=== PATIENT | female | born 1980 | race Caucasian/White ===

== ENCOUNTER 2019-08-04 08:52 | Emergency (ER) | payer OTHER, SELFPAY ==
--- NOTE | ~2019-08-04 | XR_ITS ---
EXAMINATION: XR ankle LT min 3V DATE: 08/04/2019 09:26 INDICATION: Lateral left ankle pain post fall one day prior TECHNIQUE: Anteroposterior, oblique, mortise, and lateral views of the left ankle were obtained. COMPARISON: None. FINDINGS: There is nondisplaced transverse fracture through the distal fibula with a fracture plane exiting med ially below the level of the tibiotalar joint. No other fracture identified. Specifically the medial and posterior malleoli as well as the talar dome are intact. Ankle mortise remains congruent.Small plantar calcaneal spur. Tiny enthesopathic ossicle at the distal Achilles tendon. Soft tissue swellin g overlying the lateral malleolus. Prominent ankle joint effusion. IMPRESSION: 1. Nondisplaced transverse fracture of the distal left fibula consistent with a Ott type A injury p attern with associated left ankle joint effusion. Reviewed, dictated and finalized at location A. IMPRESSION: 1. Nondisplaced transverse fracture of the distal left fibula consistent with a Ott type A injury pattern with associated left ankle joint effusion.
--- NOTE | 2019-08-04 09:31 | ED.LOWEXIN ---
HPI - Extremity Injury (Lower) General Chief Complaint: Extremity Injury, Lower Stated Complaint: fell left ankle pain Time Seen by Provider: 08/04/19 09:31 Source: patient and RN notes reviewed History of Present Illness HPI Narrative: Patient is a 39-year-old female who presents the urgent care with complaints of a left ankle injury. Patient states that she has had increased pain and swelling and is unable to bear weight on the left foot. Patient states that she stepped off a curb and rolled her ankle last night in the rain. Patient has elevated and use ice. Denies of any other acute complaints. No other acute injuries due to the fall. Patient aware of the plan of care. Related Data Home Medications Medication Instructions Recorded Confirmed alprazolam 1 mg PO DAILY 08/04/19 08/04/19 levothyroxine 25 mcg PO DAILY 08/04/19 08/04/19 sertraline 50 mg PO DAILY 08/04/19 08/04/19 Allergies Allergy/AdvReac Type Severity Reaction Status Date / Time Penicillins Allergy Unknown Verified 08/04/19 09:50 Sulfa (Sulfonamide Allergy Unknown Verified 08/04/19 09:50 Antibiotics) Review of Systems Review of Systems: Narrative: CONSTITUTIONAL: Denies fever, chills, or sweats. EYES: Denies visual changes, redness, or discharge. ENT: Denies rhinorrhea, congestion, sore throat, or otalgia. CARDIOVASCULAR: Denies chest pain, palpitations, or edema. RESPIRATORY: Denies cough or dyspnea. GASTROINTESTINAL: Denies abdominal pain, nausea, vomiting, or diarrhea. GENITOURINARY: Denies dysuria or hematuria. SKIN: Denies rash or itching. MUSCULOSKELETAL: Reports of left ankle pain and swelling NEUROLOGIC: Denies headache, numbness, or weakness. All other systems reviewed are negative, except as documented in HPI. [facility]LY [facility], [facility] Family History Family History (Updated 05/26/14 @ 12:34 by DOCTOR UNKNOWN) Other Diabetes mellitus Family history of malignant neoplasm Social History Social History Smoking status: Never smoker Alcohol intake: current Comments At the time of my signature, I reviewed and agree with the nursing past medical, surgical, social, and family history. There is no relevant family history pertinent to the patient complaint. Exam Narrative: Exam Narrative: GENERAL: This is a well-nourished, well-developed patient, in no apparent distress. HEAD: normocephalic, atraumatic. EYES: PERRL. Sclera clear/white. Vision is grossly intact. EARS: External ears normal NOSE: External nose normal with no obvious nasal discharge THROAT: Mucous membranes moist NECK: Neck supple SKIN: warm, intact with no suspicious lesions or rash, good texture and turgor. NEURO: awake, alert, and oriented to person, place and time. There were no obvious focal neurologic abnormalities. EXTREMITIES: Moderate edema and mild ecchymosis noted to the lateral malleolus and distal left fibular region with moderate tenderness. Range of motion not tested due to pain. Unable to bear weight without extreme pain. Positive strong left pedal pulse with capillary refill less than 2 seconds. Course Vital Signs Vital signs: Vital Signs Temperature 97.3 F L 08/04/19 09:43 Pulse Rate 105 H 08/04/19 09:43 Respiratory Rate 18 08/04/19 09:43 Blood Pressure 134/92 H 08/04/19 09:43 Pulse Oximetry 98 08/04/19 09:43 Temperature 97.3 F L 08/04/19 09:43 Pulse Rate 105 H 08/04/19 09:43 Respiratory Rate 18 08/04/19 09:43 Blood Pressure 134/92 H 08/04/19 09:43 Pulse Oximetry 98 08/04/19 09:43 Reviewed?patient is informed that they may have pre-hypertension or hypertension based on a blood pressure reading in the department. I recommend the patient call the primary care provider listed on their discharge instructions or a physician of their choice this week to arrange follow-up for further evaluation of possible pre-hypertension or hypertension. Procedures Orthopedic Splinting/Casting Injury #1: Side: left Lower Extremit
[2019-08-04 09:43] VITALS: BP 134/92; PULSE 105; RESP 18; TEMP 36.3; O2SAT 98
== END 2019-08-04 10:20 | disposition home or self-care (01) ==
PROVIDERS: Emergency Provider Nurse Practitioner Family; PCP Family Medicine
DX: S82.832A Other fracture of upper and lower end of left fibula, initial encounter for closed fracture (principal)
CPT/HCPCS: 29515; 73610; 99214; G0463

== ENCOUNTER 2019-10-03 14:38 | Outpatient (CLI) | payer OTHER, SELFPAY ==
[2019-10-03 16:22] LABS: Free T4 Free Thyroxine 0.95 ng/mL (0.78-2.19); Vitamin D 25 Hydroxy 18.6 ng/mL
== END 2019-10-03 14:39 | disposition home or self-care (01) ==
PROVIDERS: PCP Family Medicine; Visit Provider Nurse Practitioner Family
DX: E03.9 Hypothyroidism, unspecified (principal); R53.83 Other fatigue
CPT/HCPCS: 36415; 82306; 82607; 84439; 84443

== ENCOUNTER 2020-09-04 09:14 | Outpatient (CLI) | payer OTHER, SELFPAY ==
[2020-09-04 09:37] LABS: Alanine Aminotransferase 55 U/L (4-35); Albumin Level 4.5 g/dL (3.5-5.1); Alkaline Phosphatase 89 U/L (38-126); Anion Gap 11 mmol/L (8-16); Aspartate Amino Transferase 46 U/L (14-36); Bilirubin,Total 0.2 mg/dL (0.2-1.3); Blood Urea Nitrogen 9 mg/dL (7-17); Calcium 9.4 mg/dL (8.4-10.2); Carbon Dioxide 24 mmol/L (22-30); Chloride 107 mmol/L (98-107); Cholesterol 233 mg/dL (0-200); Estimated Glomerular Filt Rate > 60; Glucose 91 mg/dL (65-105); HDL Direct 57 mg/dL; Sodium 142 mmol/L (137-145); Triglycerides 145 mg/dL (<150)
[2020-09-04 09:49] LABS: LDL Cholesterol Direct 116 mg/dL
== END 2020-09-04 09:15 | disposition home or self-care (01) ==
PROVIDERS: PCP Family Medicine; Visit Provider Nurse Practitioner Family
DX: R74.8 Abnormal levels of other serum enzymes (principal); E03.9 Hypothyroidism, unspecified; R63.5 Abnormal weight gain
CPT/HCPCS: 36415; 80053; 80061; 84436; 84443

== ENCOUNTER 2020-10-10 09:34 | Emergency (ER) | payer OTHER, SELFPAY ==
[2020-10-10 09:44] VITALS: BP 127/80; PULSE 107; RESP 16; TEMP 36.7; O2SAT 100
--- NOTE | 2020-10-10 10:05 | ED.GENADULT ---
HPI - General Adult General Chief complaint: Upper Respiratory Infection Stated complaint: Sinus Pressure Source: patient Mode of arrival: ambulatory Limitations: no limitations History of Present Illness HPI narrative: Patient presents for evaluation of sinus problems. She reports frontal and maxillary sinus congestion and pain for the last week. She further endorses mucopurulent drainage from both nares. No fever, chills, nausea, vomiting, sore throat, otalgia, respiratory symptoms. She has a history of recurrent sinus infections. She had nasoplasty in the past. She has been using Flonase with some limited improvement in her symptoms thereafter. Related Data Home Medications Medication Instructions Recorded Confirmed phentermine 37.5 mg capsule 37.5 mg PO DAILY 08/26/20 10/10/20 Allergies Allergy/AdvReac Type Severity Reaction Status Date / Time Penicillins Allergy Unknown Unknown Verified 10/10/20 09:48 Sulfa (Sulfonamide Allergy Unknown Unknown Verified 10/10/20 09:48 Antibiotics) Review of Systems Review of Systems: Narrative: CONSTITUTIONAL: Denies fever, chills, or sweats. EYES: Denies visual changes, redness, or discharge. ENT: Reports sinus congestion with mucopurulent drainage from both nares. Denies congestion, sore throat, or otalgia. CARDIOVASCULAR: Denies chest pain, palpitations, or edema. RESPIRATORY: Denies cough or dyspnea. GASTROINTESTINAL: Denies abdominal pain, nausea, vomiting, or diarrhea. GENITOURINARY: Denies dysuria or hematuria. SKIN: Denies rash or itching. MUSCULOSKELETAL: Denies back pain, joint pain, or myalgia. NEUROLOGIC: Denies headache, numbness, dizziness, or weakness. PSYCHIATRIC: Denies anxiety or depression. [facility] Past Medical History Medical History Body mass index (BMI) of 40.1 to 44.9 in adult delivery delivered Fracture of lateral malleolus of left ankle History of LEEP (loop electrosurgical excision procedure) of cervix complicating (~05/2010) Morbid (severe) obesity due to excess calories Surgical History Surgical History History of (~07/2004) History of nasal surgery (~03/2009) Family History Family History Grandparent Breast cancer Grandparent Diabetes mellitus Father No problems noted. Mother No problems noted. Sibling No problems noted. 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 HEAD: Normocephalic, atraumatic. EYES: PERRLA and EOMI. ENT: Tenderness over bilateral frontal and maxillary sinuses. Nares clear, no rhinorrhea or epistaxis. Mucous membranes moist. Oropharynx without tonsillar hypertrophy exudate or other lesions. Bilateral TMs pearly fernandez nonbulging NECK: Supple. No adenopathy or masses. No carotid bruits or JVD CHEST: Clear to auscultation. No respiratory distress. No wheezes rales or rhonchi HEART: Regular rate and rhythm. No murmur heard. Normal peripheral pulses. ABDOMEN: Soft, nontender, nondistended, normal active bowel sounds. EXTREMITIES: Normal range of motion. No edema. SKIN: Warm, dry, no rash. NEURO: No focal deficits. Alert and oriented x3. PSYCH: Normal mood and affect. Course Course Emergency Course: This is a 40-year-old female who presents with sinu
== END 2020-10-10 10:18 | disposition home or self-care (01) ==
PROVIDERS: Emergency Provider Nurse Practitioner; PCP Family Medicine
DX: J00 Acute nasopharyngitis [common cold] (principal); J01.90 Acute sinusitis, unspecified; Z87.891 Personal history of nicotine dependence; E66.01 Morbid (severe) obesity due to excess calories; Z68.39 Body mass index [BMI] 39.0-39.9, adult
CPT/HCPCS: 99213; G0463

== ENCOUNTER 2021-05-11 08:43 | Outpatient (CLI) | payer OTHER, SELFPAY ==
--- NOTE | ~2021-05-11 | XR_ITS ---
XR knee RT 3V 05/11/2021 09:00 Indication: Right knee pain Procedure: 3 views right knee Comparison: No prior studies for comparison. Findings: No fracture, subluxation or dislocation. No significant joint effusion. No foreign bodies. There is anatomic alignment. Impression: 1: No significant bone or joint abnormality. Reviewed, dictated and finalized at location B. GING CUT OFF SAW OPERATOR Impression: 1: No significant bone or joint abnormality.
--- NOTE | ~2021-05-11 | XR_ITS ---
XR knee LT 3V 05/11/2021 08:59 INDICATION: Left knee pain PROCEDURE: 3 views left knee COMPARISON: No prior studies FINDINGS: Fracture, dislocation or subluxation is not identified. No significant joint effusion. The soft tissues appear within normal limits. No foreign bodies are identified. IMPRESSION: 1: NO ACUTE BONE OR JOINT ABNORMALITY IDENTIFIED. Reviewed, dictated and finalized at location B. TELECOM TECHNICIAN
== END 2021-05-11 08:44 | disposition home or self-care (01) ==
LOC: ANHIMG 08:45
PROVIDERS: PCP Family Medicine; Visit Provider Nurse Practitioner Family
DX: M25.561 Pain in right knee (principal); M25.562 Pain in left knee
CPT/HCPCS: 73562

== ENCOUNTER 2021-10-29 11:56 | Outpatient (CLI) | payer OTHER, SELFPAY ==
[2021-10-29 12:10] LABS: Hematocrit 43.7 % (37.0-47.0); Hemoglobin 13.8 g/dL (12.0-15.0); Mean Corpuscular HGB Conc 31.6 g/dl (32-36); Mean Corpuscular Hemoglobin 30.9 pg (26-34); Mean Corpuscular Volume 97.8 fl (80-100); Mean Platelet Volume 9.7 fl (7.4-10.4); Platelet Count Result 333 k/mm3 (150-375); Red Blood Count 4.47 M/mm3 (4.2-5.4); Red Cell Distribution Width 12.7 % (11.5-14.5); White Blood Count 5.2 K/mm3 (4.5-10.0)
[2021-10-29 12:21] LABS: Alanine Aminotransferase 44 U/L (6-35); Albumin Level 4.9 g/dL (3.5-5.1); Alkaline Phosphatase 91 U/L (38-126); Anion Gap 8 mmol/L (8-16); Aspartate Amino Transferase 37 U/L (14-36); Bilirubin,Total 0.5 mg/dL (0.2-1.3); Blood Urea Nitrogen 13 mg/dL (7-17); Calcium 9.3 mg/dL (8.4-10.2); Carbon Dioxide 28 mmol/L (22-30); Chloride 103 mmol/L (98-107); Cholesterol 274 mg/dL (0-200); Estimated Glomerular Filt Rate > 60; Glucose 100 mg/dL (65-110); HDL Direct 75 mg/dL; Potassium 4.1 mmol/L (3.4-5.0); Sodium 139 mmol/L (137-145); Triglycerides 129 mg/dL (<150)
[2021-10-29 12:32] LABS: LDL Cholesterol Direct 157 mg/dL
[2021-10-29 12:51] LABS: Free T4 Free Thyroxine 1.01 ng/mL (0.78-2.19)
== END 2021-10-29 11:57 | disposition home or self-care (01) ==
PROVIDERS: PCP Family Medicine; Visit Provider Nurse Practitioner Family
DX: F41.9 Anxiety disorder, unspecified (principal); Z13.220 Encounter for screening for lipoid disorders; R79.89 Other specified abnormal findings of blood chemistry; E07.9 Disorder of thyroid, unspecified; E03.9 Hypothyroidism, unspecified
CPT/HCPCS: 36415; 80053; 80061; 84439; 84443; 85027

== ENCOUNTER 2021-11-24 06:10 | Emergency (ER) | payer OTHER, SELFPAY ==
--- NOTE | ~2021-11-24 | CT_ITS ---
EXAMINATION: CT abdomen pelvis w con DATE: 11/24/2021 07:51 INDICATION: Right upper quadrant abdominal pain. TECHNIQUE: Computed tomography (CT) of the abdomen and pelvis was performed with 100 mL Omnipaque 350 intravenous contrast. Automated exposure control and iterative reconstruction technique were employe d. The dose-length product was 1410.89 mGy-cm. COMPARISON: None. FINDINGS: The visualized portions of the lung bases are clear without pneumonia or pleural effusion. The heart size is normal. No pericardial effusion. The liver, gallbladder, spleen, pancreas, adrenal glands, and right kidney are normal. There is a 3 mm cyst in left kidney. There is an intrauterine de vice in expected position. There are no dilated loops of bowel. The appendix is normal. There is an u mbilical hernia containing fat. There are no pathologically enlarged lymph nodes. There is physiologi c fluid in the pelvis. There is mild thoracic spondylosis. IMPRESSION: 1. Umbilical hernia containing fat. Reviewed, dictated and finalized at location A.
[2021-11-24 06:11] VITALS: BP 123/86; PULSE 113; RESP 20; TEMP 36.6; O2SAT 98
--- NOTE | 2021-11-24 06:35 | ED.ABDPAIN ---
HPI - Abdominal Pain General Chief Complaint: Back Pain/Injury <Devonte Ortiz MD - Last Filed: 11/24/21 06:40> Stated Complaint: Back Pain Radiating through Chest <Devonte Ortiz MD - Last Filed: 11/24/21 06:40> Time Seen by Provider: 11/24/21 06:21 <Devonte Ortiz MD - Last Filed: 11/24/21 06:40> History of Present Illness HPI narrative: This is a 41-year-old female past medical history of hypertension, who presents to the emergency department complaining of 2 out of 10 right flank pain for the past day. She says yesterday, she noted mild flank tenderness, described as dull, that persisted and eventually began radiating to the front of her abdomen as well as towards the right neck. She knows of no aggravating or alleviating factors. She denies associated nausea, vomiting, pain with urination or increased frequency of urinationor diarrhea. <Devonte Ortiz MD - Last Filed: 11/24/21 06:40> Related Data Home Medications: Home Medications Medication Instructions Recorded Confirmed levonorgestrel 20 mcg/24 hours (7 1 device intrauterine ONCE 11/01/21 11/01/21 yrs) 52 mg intrauterine device (Mirena) <Devonte Ortiz MD - Last Filed: 11/24/21 06:40> Allergies/Adverse Reactions: Allergies Allergy/AdvReac Type Severity Reaction Status Date / Time Penicillins Allergy Unknown Unknown Verified 11/24/21 06:17 Sulfa (Sulfonamide Allergy Unknown Unknown Verified 11/24/21 06:17 Antibiotics) <Devonte Ortiz MD - Last Filed: 11/24/21 06:40> Review of Systems Review of Systems: CONSTITUTIONAL: Denies fever, chills, or sweats. EYES: Denies visual changes, redness, or discharge. ENT: Denies rhinorrhea, congestion, sore throat, or otalgia. CARDIOVASCULAR: Denies chest pain, palpitations, or edema. RESPIRATORY: Denies cough or dyspnea. GASTROINTESTINAL: Right flank pain and abdominal pain denies nausea, vomiting, or diarrhea. GENITOURINARY: Denies dysuria or hematuria. SKIN: Denies rash or itching. MUSCULOSKELETAL: Denies back pain, joint pain, or myalgia. NEUROLOGIC: Denies headache, numbness, dizziness, or weakness. PSYCHIATRIC: Denies anxiety or depression. <Devonte Ortiz MD - Last Filed: 11/24/21 06:40> [facility] Past Medical History Medical History: Medical History BMI 37.0-37.9, adult Body mass index (BMI) of 40.1 to 44.9 in adult delivery delivered Fracture of lateral malleolus of left ankle History of LEEP (loop electrosurgical excision procedure) of cervix complicating (~05/2010) Morbid (severe) obesity due to excess calories <Devonte Ortiz MD - Last Filed: 11/24/21 06:40> Surgical History Surgical History: Surgical History History of (~07/2004) History of nasal surgery (~03/2009) <Devonte Ortiz MD - Last Filed: 11/24/21 06:40> Family History Family History: Family History Grandparent Breast cancer Grandparent Diabetes mellitus Father No problems noted. Mother Thyroid activity decreased Sibling No problems noted. 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
[2021-11-24] MEDS: SODIUM CHLORIDE 0.9% IV 1,000 ML 999 ML IV CONT (06:52)
[2021-11-24 06:54] LABS: Basophils Percent Auto 0.4 % (0.2-1.2); Eosinophils Absolute Auto 0.2 K/mm3 (0-0.3); Eosinophils Percent Auto 2.2 % (0-4.4); Hematocrit 42.5 % (37.0-47.0); Hemoglobin 13.8 g/dL (12.0-15.0); Immature Granulocyte Absolute 0.04 K/mm3 (0.00-0.031); Immature Granulocyte Percent A 0.4 % (0-0.5); Lymphocytes Absolute Auto 1.88 K/mm3 (0.9-3.2); Lymphocytes Percent Auto 16.9 % (18.3-44.2); Mean Corpuscular HGB Conc 32.5 g/dl (32-36); Mean Corpuscular Hemoglobin 31.5 pg (26-34); Monocytes Absolute Auto 0.9 K/mm3 (0.1-0.6); Monocytes Percent Auto 8.3 % (2.6-8.5); Neutrophils Percent Auto 71.8 % (45.5-73.1); Platelet Count Result 302 k/mm3 (150-375); Red Blood Count 4.38 M/mm3 (4.2-5.4); Red Cell Distribution Width 13.2 % (11.5-14.5); White Blood Count 11.1 K/mm3 (4.5-10.0)
[2021-11-24 07:04] LABS: Alanine Aminotransferase 32 U/L (6-35); Albumin Level 4.6 g/dL (3.5-5.1); Alkaline Phosphatase 89 U/L (38-126); Anion Gap 13 mmol/L (8-16); Aspartate Amino Transferase 32 U/L (14-36); Bilirubin,Total 0.5 mg/dL (0.2-1.3); Blood Urea Nitrogen 21 mg/dL (7-17); Calcium 8.6 mg/dL (8.4-10.2); Carbon Dioxide 24 mmol/L (22-30); Chloride 101 mmol/L (98-107); Estimated CRCL calculation 159 ml/min; Estimated Glomerular Filt Rate > 60; Glucose 91 mg/dL (65-110); Lipase 54 U/L (23-300); Potassium 4.4 mmol/L (3.4-5.0); Sodium 138 mmol/L (137-145)
--- NOTE | 2021-11-24 07:18 | PC.NURSE ---
Transferred care to JONATHAN Serra
--- NOTE | 2021-11-24 07:26 | ECG_ITS ---
Measurements Intervals [place] Rate: 95 P: 43 CO: 162 QRS: -8 QRSD: 93 T: 6 QT: 355 QTc: 448 Interpretive Statements SINUS RHYTHM NORMAL ECG NO PREVIOUS ECG AVAILABLE FOR COMPARISON Electronically Signed On 11-24-2021 7:56:20 CDT by Aguilar Walton D.O.
[2021-11-24 07:31] VITALS: BP 132/112; PULSE 98; RESP 16; O2SAT 100
[2021-11-24 07:38] LABS: Appearance Urine Clear (Clear); Bilirubin Urine Negative (Negative); Blood Urine Trace-lysed (Negative); Color Urine Yellow (Yellow); Glucose Urine UA Negative (Negative); Ketones Urine Trace mg/dL (Negative); Leukocyte Esterase Ur Negative LEU/UL (Negative); Nitrate Urine Negative (Negative); Protein Urine Negative (Negative); Urobilinogen Urine 0.2 mg/dL (<2.0); pH Urine 5.5 (5.0-9.0)
[2021-11-24 07:41] LABS: Pregnancy On Board Control Positive; Urine Pregnancy Test Negative
--- NOTE | 2021-11-24 07:45 | PC.NURSE ---
Pt to CT scan at this time.
[2021-11-24 07:57] LABS: Add Urine Microscopic? YES; RBC Urine 0-2 /hpf (0-2); Squamous Epithelial Cell Urine Many /hpf (Few); WBC Urine 0-3 /hpf
[2021-11-24 08:20] LABS: Troponin I < 0.012 ng/mL (0.000-0.034)
[2021-11-24 08:23] VITALS: PULSE 107; RESP 17; O2SAT 98
[2021-11-24] MEDS: LORazepam INJ (*CRX) 2 MG/ML VIAL 1 MG IV PUSH (08:23)
[2021-11-24 09:04] VITALS: PULSE 107; RESP 20; O2SAT 97
[2021-11-24 10:25] LABS: Troponin I < 0.012 ng/mL (0.000-0.034)
[2021-11-24 10:26] VITALS: BP 118/81; PULSE 104; RESP 17; O2SAT 98
[2021-11-24 11:38] VITALS: BP 132/89; PULSE 101; RESP 17; O2SAT 99
[2021-11-24 12:04] LABS: D Dimer 0.33 ug/mL (<0.48)
[2021-11-24] MEDS: KETOROLAC 15 MG/ML VIAL (*BKC) IV PUSH (12:16)
== END 2021-11-24 12:23 | disposition home or self-care (01) ==
PROVIDERS: Emergency Medicine; Emergency Provider Preventive Medicine Aerospace Medicine; PCP Family Medicine
DX: R07.89 Other chest pain (principal); E66.01 Morbid (severe) obesity due to excess calories; Z68.37 Body mass index [BMI] 37.0-37.9, adult; Z87.891 Personal history of nicotine dependence; I10 Essential (primary) hypertension; K42.9 Umbilical hernia without obstruction or gangrene
CPT/HCPCS: 36415; 74177; 80053; 81001; 81025; 83690; 84484; 85025; 85380; 93005; 96361; 96374; 96375; 99284; J1885; J2060; J7030; Q9967

== ENCOUNTER 2022-05-30 09:41 | Outpatient (CLI) | payer OTHER, SELFPAY ==
--- NOTE | ~2022-05-30 | MM_ITS ---
EXAMINATION: MM screening jasmyne BI w caio HISTORY: Screening mammogram TECHNIQUE: Craniocaudal and mediolateral oblique 3-D tomosynthesis images were obtained and synthetic 2-D images were generated. CAD analysis was submitted and interpreted. COMPARISON: No prior mammogram is available for comparison at this institution. BREAST PARENCHYMAL COMPOSITION: There are scattered areas of fibroglandular density. FINDINGS: There is no evidence of suspicious mass, calcification, or architectural distortion to sugg est malignancy in either breast. IMPRESSION: 1. No mammographic evidence of malignancy. 2. Recommend routine screening mammography in one year. BI-RADS Category 1: Negative Reviewed, dictated and finalized at location A.
== END 2022-05-30 09:42 | disposition home or self-care (01) ==
LOC: ANHIMG 09:45
PROVIDERS: PCP Family Medicine; Visit Provider Nurse Practitioner Family
DX: Z12.31 Encounter for screening mammogram for malignant neoplasm of breast (principal)
CPT/HCPCS: 77063; 77067

== ENCOUNTER 2022-08-29 11:08 | Outpatient (CLI) | payer OTHER, SELFPAY ==
--- NOTE | ~2022-08-29 | CT_ITS ---
EXAMINATION: CT sinus wo con DATE: 08/29/2022 11:39 INDICATION: Chronic sinusitis. TECHNIQUE: Computed tomography (CT) of the paranasal sinuses was performed without intravenous contra st. The dose-length product was 317.41 mGy-cm. Automated exposure control and iterative reconstructio n technique were employed. COMPARISON: CT dated 12/17/2014 FINDINGS: There is mucosal thickening of the maxillary sinuses. Rightward nasal septal deviation. Lef t-sided ana bullosa. Ostiomeatal units are patent. No air-fluid levels or mucoperiosteal reaction. Minimal mucosal thickening of the ethmoid and sphenoid sinuses. Mastoids are pneumatized. IMPRESSION: 1. Mild sinusitis, primarily involving the maxillary sinuses. Reviewed, dictated and finalized at location []
== END 2022-08-29 11:09 | disposition home or self-care (01) ==
PROVIDERS: PCP Family Medicine; Visit Provider Otolaryngology
DX: J32.9 Chronic sinusitis, unspecified (principal); J34.2 Deviated nasal septum; J34.3 Hypertrophy of nasal turbinates; R09.82 Postnasal drip; R44.8 Other symptoms and signs involving general sensations and perceptions; R51.9 Headache, unspecified
CPT/HCPCS: 70486

== ENCOUNTER 2022-10-07 00:10 | Day surgery (SDC) | payer OTHER, SELFPAY ==
[2022-09-28 14:31] VITALS: BMI 37.5
--- NOTE | 2022-09-28 14:37 | PC.NURSE ---
Report to the Outpatient Waiting Room, entrance under the green pavilion located off [facility], at time 0730 on date 10/07/22. Planned Procedure Time: 0930. Time changes happen often and if your time is changed the preop area will call you the afternoon before. - You and your visitor will be asked to self-screen and do not enter if you have any COVID symptoms. - A mask is optional within the hospital at this time. Patients may have clear liquids (water, carbonated beverages, clear teas, apple juice) until 3 hours prior to surgery with a maximum of 20 ounces. - No food from midnight until time of surgery Take the following medications with a SIP of water the morning of surgery: INHALER/XANAX IF NEEDED, DULOXETINE, LEVOTHYROXINE DO NOT STOP ANY OF YOUR OTHER PRESCRIPTION MEDICATIONS PRIOR TO SURGERY ?EXCEPT THE FOLLOWING Medications to discontinue per physician: VITAMINS/SUPPLEMENTS Date to take last dose: 10/03/22 Please no make-up, nail australian, hairspray, perfume, deodorant, or body powder the day of surgery. No jewelry (including any body piercings) or valuables the day of surgery, leave them at home. Please take a shower or bath the night before, or the morning of, surgery with an antibacterial soap. Wear comfortable, loose fitting clothing. - Jewelry must be removed prior to entering the operating room. Rings and piercings that are not removed may be cut off. - The hospital will not accept responsibility for valuables. - Please leave all valuables, including medications, at home the day of surgery. If you are going home after surgery, a licensed armored car guard and driver must drive you home. - NO public transportation without another adult if you receive anesthesia. - We recommend that an adult stay with you for 24 hours following discharge. - We also recommend that you do not drive, make important decision, drink alcoholic beverages, or take any drugs that were not prescribed by your health care provider for at least 24 hours after your discharge time. Follow any additional instructions given to you from your surgeon. If you or anyone in your household have experienced Covid symptoms in the past week, please notify your surgeon or the nurse liaison at the phone number below for possible testing. Telephone instructions given to PT - GERMAN RANDHAWA and asked if any additional questions and then verbalized understanding. Patient advised to call surgeon office or pre surgery nurse liaison [phone] if any additional questions.
--- NOTE | 2022-10-06 17:21 | PM.IMHP ---
H&P: HPI History of Present Illness Date/Time: 10/06/22 17:21 Chief Complaint: chronic sinusitis left ana bullosa septal deviation turbinate hypertrophy nasal obstruction nasal congestion Narrative: planned procedure Review of Systems Review of Systems: All systems reviewed & are unremarkable except as noted in HPI and below PMFSH Past Medical History Medical History BMI 37.0-37.9, adult BMI 38.0-38.9,adult Body mass index (BMI) of 40.1 to 44.9 in adult delivery delivered Fracture of lateral malleolus of left ankle History of LEEP (loop electrosurgical excision procedure) of cervix complicating (~05/2010) Morbid (severe) obesity due to excess calories Surgical History Surgical History History of (~07/2004) History of nasal surgery (~03/2009) Family History Family History Grandparent Breast cancer Grandparent Diabetes mellitus Father No problems noted. Mother Thyroid activity decreased Sibling No problems noted. Other Family history of malignant neoplasm Social History Social History Years smoked: 5 Smoking status: Former smoker Tobacco type: cigarettes Second hand tobacco smoke exposure: Yes Smoking end date: 03/20/04 Alcohol intake: current Alcohol use details: VODKA: 5-10 DRINKS, 5 NIGHTS/WEEK Substance use: never Substance use type: does not use Lack of Transportation: No Lack of Food: Never True Current Housing: I Have Housing Concerned About Future Housing: No Difficulty Paying Gas/Electric Bills: No Difficulty Paying for Meds: No Currently Unemployed: No Education: Trade/Vocational Certificate Difficulty w/ Childcare or Family Care: No Living arrangements: with family Occupation/Education: occupation 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7 grams levothyroxine 25 mcg tablet 25 mcg PO DAILY #90 tabs 07/13/22 09/28/22 Rx duloxetine 20 mg capsule,delayed 20 mg PO BID #60 caps 08/30/22 09/28/22 Rx release milk thistle 500 mg capsule 500 mg PO DAILY 09/28/22 09/28/22 History alprazolam 1 mg tablet 1 mg PO DAILY PRN anxiety #10 tabs 10/04/22 Rx Allergies Allergy/AdvReac Type Severity Reaction Status Date / Time Penicillins Allergy Unknown Unknown Verified 09/28/22 14:28 Sulfa (Sulfonamide Allergy Unknown Unknown Verified 09/28/22 14:28 Antibiotics) Exam Narrative: ana bullosa septal deviation turbinate hypertrophy chronic appearing sinuses Assessment and Plan Assessment and plan (1) Chronic sinusitis: Code(s): J32.9 - Chronic sinusitis, unspecified Status: Acute Assessment and Plan: plan OR image guided endoscopic bilateral maxillary antrostomies bilateral anterior ethmoidectomies resection of left ana endoscopic assisted septoplasty turbinate reduction with outfracture. Risks discussed including bleeding infection damage to surrounding structures damage to any structure with the clavicles by myself damage to any structure the induction and maintenance of anesthesia CSF leak bra
[2022-10-07] VITALS (8 sets, daily range): BP systolic 125–147; BP diastolic 72–90; PULSE 74–96; RESP 12–16; TEMP 36.3–36.9; O2SAT 94–100
[2022-10-07] MEDS: LACTATED RINGERS 1,000 ML 30 ML IV CONT ×2 (07:05→11:32)
--- NOTE | 2022-10-07 07:15 | WPDHPUPDATE1 ---
History and Physical Update Update Date/Time: 10/07/22 07:15 History and Physical has been reviewed, including an updated exam of the patient. There are NO changes in the patient's condition. Risks, benefits, and alternatives have been discussed and questions answered. Patient agrees to proceed with procedure.
[2022-10-07] MEDS: ACETAMINOPHEN 500 MG TABLET 1000 MG PO (07:40)
--- NOTE | 2022-10-07 08:15 | WPDANESEPPF ---
Anes - Initial Pre Proc Eval Procedure: Operation Date: 10/07/22 08:30 Proposed Procedures p Image Guided Bilateral Inferior Turbinectomy With Outfracture, Bilateral Anterior Ethmoidectomy, Bilateral Maxillary Antrostomy without Tissue Removal, - Ortiz Hendrickson MD s Septoplasty - Ortiz Hendrickson MD Date/Time: 10/07/22 08:15 Surgeon: Ortiz Hendrickson MD Pre Op Diagnosis: chronic sinusitis Patient Data Age: 42 Gender: F Height: 1.7 m Weight: 112.8 kg Last Vital Signs Temp 36.9 C 10/07/22 07:23 Pulse 94 10/07/22 07:23 Resp 16 10/07/22 07:23 BP 129/89 10/07/22 07:23 Pulse Ox 99 10/07/22 07:23 O2 Del Method Room Air 10/07/22 07:23 Allergies Allergy/AdvReac Type Severity Reaction Status Date / Time Penicillins Allergy Unknown Unknown Verified 10/07/22 07:10 Sulfa (Sulfonamide Allergy Unknown Unknown Verified 10/07/22 07:10 Antibiotics) Home Medications Medication Instructions Recorded Confirmed Type fluticasone propionate 50 1 spray intranasal DAILY #18.2 mL 08/11/21 09/28/22 Rx mcg/actuation nasal spray,suspension (Flonase Allergy Relief) levonorgestrel 21 mcg/24 hours (8 1 device intrauterine ONCE 11/01/21 09/28/22 History yrs) 52 mg intrauterine device (Mirena) albuterol sulfate 90 mcg/actuation 2 inh inhalation Q4H PRN shortness 01/05/22 09/28/22 Rx aerosol inhaler (ProAir HFA) of breath or wheezing #6.7 grams levothyroxine 25 mcg tablet 25 mcg PO DAILY #90 tabs 07/13/22 09/28/22 Rx duloxetine 20 mg capsule,delayed 20 mg PO BID #60 caps 08/30/22 09/28/22 Rx release milk thistle 500 mg capsule 500 mg PO DAILY 09/28/22 09/28/22 History alprazolam 1 mg tablet 1 mg PO DAILY PRN anxiety #10 tabs 10/04/22 Rx Patient hx anesthesia problems: none Family hx anesthesia problems: none Results Review: All pre-operative results and documents have been reviewed as part of the pre-operative evaluation. [facility] Past Medical History Medical History BMI 37.0-37.9, adult BMI 38.0-38.9,adult Body mass index (BMI) of 40.1 to 44.9 in adult delivery delivered Fracture of lateral malleolus of left ankle History of LEEP (loop electrosurgical excision procedure) of cervix complicating (~05/2010) Morbid (severe) obesity due to excess calories Surgical History Surgical History History of (~07/2004) History of nasal surgery (~03/2009) Family History Family History Grandparent Breast cancer Grandparent Diabetes mellitus Father No problems noted. Mother Thyroid activity decreased Sibling No problems noted. Other Family history of malignant neoplasm Social History Social History Years smoked: 5 Smoking status: Former smoker Tobacco type: cigarettes Second hand tobacco smoke exposure: Yes Smoking end date: 03/20/04 Alcohol intake: current Alcohol use details: VODKA: 5-10 DRINKS, 5 NIGHTS/WEEK Substance use: never Substance use type: does not use Lack of Transportation: No Lack of Food: Never True Current Housing: I Have Housing Concerned About Future Housing: No Difficulty Paying Gas/Electric Bills: No Difficulty Paying for Meds: No Currently Unemployed: No Education: Trade/Vocational Certificate Difficulty w/ Childcare or Family Care: No Living arrangements: with family Occupation/Education: occupation 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
[2022-10-07] MEDS: ceFAZolin 2 GM/D5W 50 ML 2 GM/50 ML BAG IVPB (08:52)
[2022-10-07] MEDS: OXYMETAZOLINE HCL 0.05% NAS 15 ML BTL (*BKC) 1 SPRAY NASAL (09:18)
[2022-10-07] MEDS: LIDO 1%/EPINEPHRINE 1:100,000 50 ML VIAL 20 ML INFILTRATE (11:00)
[2022-10-07] MEDS: MUPIROCIN 2% OINT 22 GM TUBE 1 APPLIC EACH NARE (11:01)
--- NOTE | 2022-10-07 11:43 | W.PM.PROC2 ---
Procedure Note - Detailed Date of Procedure 10/07/22 Pre-op Diagnosis chronic sinusitis postnasal drainage nasal obstruction nasal congestion Post-op Diagnosis Same Procedure Performed Verma left ana bullosa bilateral image guided endoscopic maxillary antrostomies and anterior ethmoidectomies endoscopic assisted septoplasty inferior turbinate reduction with outfracture. Surgeon Ortiz Hendrickson MD Anesthesia General Indications See above Findings hypertrophy turbinates well reduced bleeding from the right mid turbinate had to cauterize this left some hilda unfortunately all the operated sinuses had edematous tissue right septal deviation corrected with scar tissue to the turbinates Description of Procedure patient identified consent verified preop. Patient brought to the operating room. Time-out performed. General anesthesia induced endotracheal tube secured airway. Patient prepped draped positioned procedure confirmed 2nd time-out performed. Image guidance initiated confirmed. Afrin-soaked pledgets placed bilaterally allowed to sit for 5 minutes then removed. Total of 13 cc 1% lidocaine 1 100,000 parts epinephrine injected in the inferior turbinates and bilateral nasal septum. Anish incision made left-sided fairly anteriorly. Left nasal septal flap elevated 7 [place] suction. Osteotome utilized to cross over. Right nasal septal flap elevated no scar tissue except to where the bone was adherent to the turbinate and scarred. At deviated septum removed combination Lorenzo [place] forceps Bryson forceps osteotome. [place] incision closed 4 interrupted 5 0 fast gut sutures. Turbinates reduced the submucosal plane and then outfractured with Gillespie elevator. They were reduced bilaterally with microdebrider with turbinate blade. Unfortunately the right mid turbinate began bleeding not cauterize this. Left some scar. Maxillary antrostomies performed bilaterally using image guidance double ball tip probe backbiter straight through cut image guided microdebrider. Anterior ethmoids performed bilaterally using image guidance Kerrison microdebrider. Bleeding was minimal 25-50 cc. Then the procedure Nova pack was placed the bilateral middle meati I to stent the middle turbinates medially as well as collect any blood. The right middle turbinate was somewhat floppy. Esposito splints were then placed and sutured anteriorly using a 3-0 mattressed nylon suture. Great care was taken to ensure that the Esposito splints were positioned lateral to the middle turbinates. I performed all dictated portions of procedure. Care the patient given Anesthesiology. O of note the left ana was resected using sickle blade and microdebrider. I performed all dictated portions procedure no complication care the patient given Anesthesiology. Patient taken to PACU. Blood loss 50 cc. Estimated Blood Loss -50.0 IV Fluids 50 Drains No Packing Yes (mumtaz) Pathology None sent Complications No immediate complications Condition Stable Disposition PACU [facility] Billing Surgery - Charge Forward: Surgery Billing
[2022-10-07] MEDS: fentaNYL CITRATE INJ (*CRX) 100 MCG/2 ML VIAL 25 MCG IV PUSH ×2 (12:04→12:09)
[2022-10-07] MEDS: oxyCODONE HCL (*CRX) 5 MG TAB IR PO (12:47)
== END 2022-10-07 13:25 | disposition home or self-care (01) ==
PROVIDERS: PCP Family Medicine; Visit Provider Otolaryngology
PROC: (CPT 31256; principal; 2022-10-07 08:30)
PROC: (CPT 30520; 2022-10-07 08:30)
DX: J32.9 Chronic sinusitis, unspecified (principal); J34.3 Hypertrophy of nasal turbinates; J34.2 Deviated nasal septum; J34.89 Other specified disorders of nose and nasal sinuses; Z79.51 Long term (current) use of inhaled steroids; Z87.891 Personal history of nicotine dependence; E66.9 Obesity, unspecified; Z68.38 Body mass index [BMI] 38.0-38.9, adult
CPT/HCPCS: 31256; 31254; 61782; 31240; 30520; 30140; A9270; J0690; J1100; J1170; J2250; J2405; J2704; J2710; J3010; J7120

== ENCOUNTER 2023-03-19 08:04 | Emergency (ER) | payer OTHER, SELFPAY ==
--- NOTE | 2023-03-19 08:15 | ED.URI ---
HPI - URI/Sore Throat General Chief Complaint: Upper Respiratory Infection Stated Complaint: sore throat,congestion,ear pain Time Seen by Provider: 03/19/23 08:15 Source: patient Mode of arrival: ambulatory Limitations: no limitations History of Present Illness HPI Narrative: Marie is a 42-year-old female patient presenting to the clinic today with complaints of sore throat, congestion, and ear pain x5 days. She denies any known fever or chills. Denies any chest pain or shortness of breath. MD elicited complaint: sore throat and nasal congestion Related Data Home Medications Medication Instructions Recorded Confirmed levonorgestrel 21 mcg/24 hours (8 1 device intrauterine ONCE 11/01/21 03/19/23 yrs) 52 mg intrauterine device (Mirena) milk thistle 500 mg capsule 500 mg PO DAILY 09/28/22 03/19/23 Allergies Allergy/AdvReac Type Severity Reaction Status Date / Time Penicillins Allergy Unknown Unknown Verified 03/19/23 08:06 Sulfa (Sulfonamide Allergy Unknown Unknown Verified 03/19/23 08:06 Antibiotics) Review of Systems Review of Systems: Pertinent positives per HPI. Patient denies any fever, chills, rash, headache, visual changes, dizziness, shortness of breath, chest pain, palpitations, nausea, vomiting, diarrhea, constipation, abdominal pain, or any urinary issues. [facility] Past Medical History Medical History BMI 37.0-37.9, adult BMI 38.0-38.9,adult Body mass index (BMI) of 40.1 to 44.9 in adult delivery delivered Fracture of lateral malleolus of left ankle History of LEEP (loop electrosurgical excision procedure) of cervix complicating (~05/2010) Morbid (severe) obesity due to excess calories Screening mammogram for breast cancer Surgical History Surgical History H/O LEEP History of (~07/2004) History of nasal surgery (~03/2009) Family History Family History Grandparent Breast cancer Grandparent Diabetes mellitus Father No problems noted. Mother Thyroid activity decreased Sibling No problems noted. Other Family history of malignant neoplasm Social History Social History Years smoked: 5 Smoking status: Former smoker Tobacco type: cigarettes Second hand tobacco smoke exposure: Yes Smoking end date: 03/20/04 Alcohol intake: current Alcohol use details: VODKA: 5-10 DRINKS, 5 NIGHTS/WEEK Substance use: never Substance use type: does not use Lack of Transportation: No Lack of Food: Never True Current Housing: I Have Housing Concerned About Future Housing: No Difficulty Paying Gas/Electric Bills: No Difficulty Paying for Meds: No Currently Unemployed: No Education: Trade/Vocational Certificate Difficulty w/ Childcare or Family Care: No Living arrangements: with family Occupation/Education: occupation 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 There is no relevant family history pertinent to the patient complaint. Exam Narrative: General: Well-developed, well nourished, in no apparent distress Head: Normocephalic, atraumatic Eyes: Pupils equally round and reactive to light bilaterally, EOM intact, sclera and conjunctive clear, no discharge, lids normal Ears: TMs intact and clear, ear canals clear, no drainage, grossly hearing normal. Nose: Nares patent, no discharge, no inflammation, no sinus tenderness. Mouth: Oral pharynx without lesions or masses, good
[2023-03-19 08:18] VITALS: BP 111/88; PULSE 128; RESP 16; TEMP 36.9; O2SAT 97
== END 2023-03-19 08:32 | disposition home or self-care (01) ==
PROVIDERS: Emergency Provider Nurse Practitioner Family; PCP Family Medicine
DX: H66.91 Otitis media, unspecified, right ear (principal); J06.9 Acute upper respiratory infection, unspecified; Z79.899 Other long term (current) drug therapy; Z87.891 Personal history of nicotine dependence; Z20.822 Contact with and (suspected) exposure to COVID-19
CPT/HCPCS: 87426; 87804; 99213; C9803; G0463

== ENCOUNTER 2023-04-11 09:54 | Outpatient (CLI) | payer OTHER, SELFPAY ==
[2023-04-11 10:49] LABS: Basophils Percent Auto 0.7 % (0.2-1.2); Eosinophils Absolute Auto 0.1 K/mm3 (0-0.3); Eosinophils Percent Auto 2.5 % (0-4.4); Hematocrit 41.8 % (37.0-47.0); Hemoglobin 13.7 g/dL (12.0-15.0); Immature Granulocyte Absolute 0.01 K/mm3 (0.00-0.031); Immature Granulocyte Percent A 0.2 % (0-0.5); Lymphocytes Absolute Auto 1.12 K/mm3 (0.9-3.2); Lymphocytes Percent Auto 25.8 % (18.3-44.2); Mean Corpuscular HGB Conc 32.8 g/dl (32-36); Mean Corpuscular Hemoglobin 31.5 pg (26-34); Mean Corpuscular Volume 96.1 fl (80-100); Mean Platelet Volume 10.5 fl (7.4-10.4); Monocytes Absolute Auto 0.4 K/mm3 (0.1-0.6); Neutrophils Absolute Auto 2.7 K/mm3 (1.3-6.7); Neutrophils Percent Auto 61.8 % (45.5-73.1); Platelet Count Result 361 k/mm3 (150-375); Red Blood Count 4.35 M/mm3 (4.2-5.4); Red Cell Distribution Width 12.5 % (11.5-14.5); White Blood Count 4.3 K/mm3 (4.5-10.0)
[2023-04-11 10:50] LABS: Alanine Aminotransferase 28 U/L (6-35); Albumin Level 4.3 g/dL (3.5-5.1); Alkaline Phosphatase 78 U/L (38-126); Anion Gap 7 mmol/L (8-16); Aspartate Amino Transferase 27 U/L (14-36); Bilirubin,Total 0.8 mg/dL (0.2-1.3); Blood Urea Nitrogen 11 mg/dL (7-17); Calcium 9.2 mg/dL (8.4-10.2); Carbon Dioxide 25 mmol/L (22-30); Chloride 106 mmol/L (98-107); Cholesterol 264 mg/dL (0-200); Estimated Glomerular Filt Rate > 60; Glucose 101 mg/dL (65-110); HDL Direct 66 mg/dL; Potassium 3.9 mmol/L (3.4-5.0); Sodium 138 mmol/L (137-145); Triglycerides 141 mg/dL (<150)
[2023-04-11 11:01] LABS: LDL Cholesterol Direct 154 mg/dL
[2023-04-11 11:16] LABS: Vitamin D 25 Hydroxy 19.8 ng/mL
== END 2023-04-11 09:55 | disposition home or self-care (01) ==
LOC: ANHLAB 09:55
PROVIDERS: PCP Family Medicine; Visit Provider Physician Assistant Medical
DX: F41.9 Anxiety disorder, unspecified (principal); E66.9 Obesity, unspecified; E03.9 Hypothyroidism, unspecified; E78.5 Hyperlipidemia, unspecified; R40.0 Somnolence; R79.89 Other specified abnormal findings of blood chemistry; E55.9 Vitamin D deficiency, unspecified
CPT/HCPCS: 36415; 80053; 80061; 82306; 82607; 84443; 85025

== ENCOUNTER 2023-06-07 10:58 | Outpatient (CLI) | payer OTHER, SELFPAY ==
[2023-06-07 11:37] LABS: Basophils Percent Auto 0.6 % (0.2-1.2); Eosinophils Absolute Auto 0.2 K/mm3 (0-0.3); Eosinophils Percent Auto 3.5 % (0-4.4); Hematocrit 44.9 % (37.0-47.0); Hemoglobin 14.5 g/dL (12.0-15.0); Immature Granulocyte Absolute 0.01 K/mm3 (0.00-0.031); Immature Granulocyte Percent A 0.2 % (0-0.5); Lymphocytes Absolute Auto 1.15 K/mm3 (0.9-3.2); Lymphocytes Percent Auto 23.8 % (18.3-44.2); Mean Corpuscular HGB Conc 32.3 g/dl (32-36); Mean Corpuscular Hemoglobin 31.2 pg (26-34); Mean Corpuscular Volume 96.6 fl (80-100); Monocytes Absolute Auto 0.4 K/mm3 (0.1-0.6); Monocytes Percent Auto 9.1 % (2.6-8.5); Neutrophils Percent Auto 62.8 % (45.5-73.1); Platelet Count Result 351 k/mm3 (150-375); Red Blood Count 4.65 M/mm3 (4.2-5.4); Red Cell Distribution Width 13.5 % (11.5-14.5); White Blood Count 4.8 K/mm3 (4.5-10.0)
[2023-06-07 11:56] LABS: Alanine Aminotransferase 29 U/L (6-35); Albumin Level 4.4 g/dL (3.5-5.1); Alkaline Phosphatase 71 U/L (38-126); Anion Gap 7 mmol/L (8-16); Aspartate Amino Transferase 29 U/L (14-36); Bilirubin,Total 0.8 mg/dL (0.2-1.3); Blood Urea Nitrogen 18 mg/dL (7-17); Calcium 9.4 mg/dL (8.4-10.2); Carbon Dioxide 25 mmol/L (22-30); Chloride 105 mmol/L (98-107); Estimated Glomerular Filt Rate > 60; Glucose 100 mg/dL (65-110); Sodium 137 mmol/L (137-145)
[2023-06-07 12:23] LABS: Vitamin D 25 Hydroxy 36.8 ng/mL
[2023-06-09 16:52] LABS: T4 Thyroxine 8.43 ug/dL (5.53-11.0)
== END 2023-06-07 10:59 | disposition home or self-care (01) ==
LOC: ANHLAB 11:00
PROVIDERS: PCP Family Medicine; Referring Provider Nurse Practitioner Family; Visit Provider Physician Assistant Medical
DX: D72.9 Disorder of white blood cells, unspecified (principal); E55.9 Vitamin D deficiency, unspecified; E03.9 Hypothyroidism, unspecified; R79.89 Other specified abnormal findings of blood chemistry
CPT/HCPCS: 36415; 80053; 82306; 84436; 84443; 85025

== ENCOUNTER 2024-09-24 12:24 | Outpatient (CLI) | payer BC, SELFPAY ==
--- OUTSIDE RECORDS SUMMARY | 2024-09-24 12:31 | XMS_ITS | Clinical Summary ---
Author Organization [facility] Address [address] [place] [id number] Care Team Providers Care Softball Core Molder Name Role Phone Vee Hailee Alona ORTIZ Primary Care Provider Allergies Active Allergy Reactions Criticality Noted Date Comments Penicillins Unknown 02/19/2015 Sulfa Antibiotics Unknown 02/19/2015 Medications triamcinolone 0.5 % creamIndications :Eczema, unspecified type Apply topically 2 (two) times daily. 15 g 1 8 Active MONTELUKAST 10 MG tabletIndication s:Allergic rhinitis TAKE 1 TABLET BY MOUTH ONCE DAILY 90 tablet 9 Active albuterol sulfate HFA (PROAIR HFA) 108 (90 Base) MCG/ACT inhalerIndicatio ns:Seasonal allergic rhinitis, unspecified trigger Inhale 2 puffs into the lungs every 6 (six) hours as needed for Wheezing. 18 g 9 Active FLUTICASONE PROPIONATE 50 MCG/ACT nasal sprayIndications :Allergic rhinitis INSTILL 1-2 SPRAYS IN EACH NOSTRIL DAILY 16 mL 9 Active sertraline 50 MG tabletIndication s:Anxiety Take one and one half tablets once daily 45 tablet 1 9 Active Phentermine HCl 37.5 MG CapIndications:B AZ 40.0-44.9, adult (CMS/HCC) Take 1 capsule by mouth daily. 30 capsule 9 Active ALPRAZOLAM 1 MG tabletIndication s:Anxiety TAKE 1 TABLET(1 MG) BY MOUTH TWICE DAILY 10 tablet 9 Active Active Problems Problem Noted Date Diagnosed Date BMI 40.0-44.9, adult 02/05/2019 Anxiety 01/08/2019 Allergic rhinitis 09/01/2016 Immunizations Immunization Administration Dates Next Due Hepatitis A (Generic) 02/23/2016,05/26/2015 Family History Medical History Relation Comments Diabetes Maternal Grandmother Cancer Paternal Grandmother Relation Status Comments Maternal Grandmother Paternal Grandmother Social History Tobacco Use Types Packs/Day Years Used Date Smoking Tobacco: Never Smokeless Tobacco: Never Alcohol Use Standard Drinks/Week Comments Yes 0 (1 standard drink = 0.6 oz pur e alcohol) 2x weekly PHQ-2 Answer Date Recorded PHQ-2 Score 3 02/20/2019 Comments Unknown Sex and Gender Information Value Date Recorded Sex Assigned at Not on file Legal Sex Female 9:37 PM CDT Gender Identity Not on file Sexual Orientation Not on file Last Filed Vital Signs Vital Sign Reading Time Taken Comments Blood Pressure 117/88 02/05/2019 9:27 AM CRM BUSINESS ANALYST Pulse 95 02/05/2019 9:27 AM CRM BUSINESS ANALYST Temperature 36.2 C (97.2 F) 02/05/2019 9:27 AM CRM BUSINESS ANALYST Respiratory Rate 16 02/05/2019 9:27 AM CRM BUSINESS ANALYST Oxygen Saturation 98% 02/05/2019 9:27 AM CRM BUSINESS ANALYST Inhaled Oxygen Concentration - - Weight 117.1 kg (258 lb 3.2 oz) 02/05/2019 9:27 AM CRM BUSINESS ANALYST Height 170.2 cm (5' 7) 02/05/2019 9:27 AM CRM BUSINESS ANALYST Body Mass Index 40.44 02/05/2019 9:27 AM CRM BUSINESS ANALYST Plan of Treatment Health Maintenance Due Date Last Done Comments Cervical Cancer Screening Pa p Smear (Age 30 to 64) Every 3 Years 1981 Annual Physical 1984 Hepatitis C 1999 DTaP, Tdap and Td Vaccines ( 1 - Tdap) 2000 Hepatitis B Vaccines (1 of 3 - 19+ 3-dose series) 2000 Cervical Cancer Screening Pa p with HPV Testing (Age 30 to 64) Every 5 Years 2011 Cervical Cancer Screening with HPV 2011 Mammogram Screening 2021 COVID-19 Vaccine (2023-2 5 season) 2023 HPV Vaccines Aged Out No longer eligi ble based on patient's age to complete this topic Meningococcal B Vaccine Aged Out No l onger eligible based on patient's age to complete this topic Meningococcal Vaccine Aged Out No brianda yessy eligible based on patient's age to complete this topic Pneumococcal Vaccine: Pediat rics (0 to 5 Years) and At-Risk Patients (6 to 49 Years) Aged Out No longer eligible b ased on patient's age to complete this topic RSV Immunizations Under 20 Months Aged Out No longer eligible based on patient's age to complete this topic Insurance Care Teams Softball Core Molder Relationship Specialty Start Date End Date Hailee Baxter APNP [address] [place] [address] [id number] PCP - General FAMILY PRACTICE 02/14/18
[2024-09-24 12:49] LABS: Hematocrit 42.0 % (37.0-47.0); Hemoglobin 13.9 g/dL (12.0-15.0); Immature Granulocyte Percent A 0.4 % (0-0.5); Lymphocytes Absolute Auto 1.31 K/mm3 (0.9-3.2); Mean Corpuscular HGB Conc 33.1 g/dl (32-36); Mean Corpuscular Hemoglobin 32.6 pg (26-34); Mean Corpuscular Volume 98.4 fl (80-100); Nucleated Red Blood Cells Absolute Auto 0.000 K/mm3 (0.0-0.012); Nucleated Red Blood Cells Perc 0.0 % (0.0-0.2); Platelet Count Result 361 k/mm3 (150-375); Red Blood Count 4.27 M/mm3 (4.2-5.4); White Blood Count 5.1 K/mm3 (4.5-10.0)
[2024-09-24 13:29] LABS: Free T4 Free Thyroxine 0.84 ng/dL (0.78-2.19)
[2024-09-24 13:38] LABS: Alanine Aminotransferase 29 U/L (6-35); Albumin Level 4.6 g/dL (3.5-5.1); Alkaline Phosphatase 78 U/L (38-126); Anion Gap 12 mmol/L (4-12); Aspartate Amino Transferase 38 U/L (14-36); Bilirubin,Total 0.3 mg/dL (0.2-1.3); Blood Urea Nitrogen 13 mg/dL (7-17); Calcium 9.1 mg/dL (8.4-10.2); Carbon Dioxide 23 mmol/L (22-30); Chloride 103 mmol/L (98-107); Estimated Glomerular Filt Rate > 60; Glucose 92 mg/dL (65-110); Potassium 4.0 mmol/L (3.4-5.0); Sodium 138 mmol/L (137-145); Total Protein 8.0 g/dL (6.3-8.2)
[2024-09-24 14:09] LABS: Thyroid Stimulating Hormone 2.100 uIU/mL (0.465-4.680)
[2024-09-29 15:08] LABS: Estradiol, Sensitive 356.4 pg/mL (.)
== END 2024-09-24 12:25 | disposition home or self-care (01) ==
LOC: ANHLAB 12:28
PROVIDERS: PCP Family Medicine; Visit Provider Student in an Organized Health Care Education/Training Program
DX: E03.9 Hypothyroidism, unspecified (principal); R61 Generalized hyperhidrosis; F10.90 Alcohol use, unspecified, uncomplicated
CPT/HCPCS: 36415; 80053; 82670; 83001; 84439; 84443; 85025